=== PATIENT | female | born 1980 | race Caucasian/White ===

== ENCOUNTER 2019-12-28 01:31 | Emergency (ER) | payer SELFPAY ==
[2019-12-28 01:31] VITALS: BP 117/88; PULSE 102; RESP 16; O2SAT 100
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
[2019-12-28] MEDS: succinylcholine 20 mg/mL SDV 10mL 150 MG IVP (01:35)
[2019-12-28] MEDS: fentaNYL 50 mcg/mL INJ 2mL 100 MCG IVP (01:40)
[2019-12-28 01:56] VITALS: BP 124/87; PULSE 99; RESP 20; TEMP 36.1; O2SAT 98; BMI 18.6
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
[2019-12-28 02:01] VITALS: BP 137/93; PULSE 100; RESP 16; O2SAT 100
[2019-12-28 02:04] VITALS: RESP 16
[2019-12-28] MEDS: etomidate 10 ML 10 MG (02:17)
[2019-12-28] MEDS: vecuronium 10 mg SDV IVP (02:18)
[2019-12-28] MEDS: fentaNYL 50 mcg/mL INJ 2mL IVP (02:20)
[2019-12-28] MEDS: succinylcholine 20 mg/mL SDV 10mL 200 MG (02:21)
[2019-12-28] MEDS: propofol 1,000 MG/100 ML INJ 9.4 MG (02:22)
--- NOTE | 2019-12-28 02:23 | PC.NURSE ---
Ems here for fast transfer to [facility] ER. Patients vs stable.
[2019-12-28 02:26] LABS: Alanine Aminotransferase 11 U/L (0-33); Albumin Level 4.9 g/dL (3.5-5.2); Alkaline Phosphatase 43 IU/L (35-105); Anion Gap 24.6 (5-19); Aspartate Amino Transferase 23 U/L (0-32); Blood Urea Nitrogen 11 mg/dL (6-20); Calcium 9.4 mg/dL (8.5-10.5); Carbon Dioxide 16 mmol/L (22-29); Chloride 110 mmol/L (98-107); Globulin 2.8 g/dL (1.3-4.6); Glomerular Filtration Rate 138.1 mL/min (90-130); Glucose 93 mg/dL (65-115); Osmolality Calculated 300 mOsm/kg (285-295); Potassium 3.6 mmol/L (3.5-5.1); Sodium 147 mmol/L (136-145); Total Bilirubin 0.2 mg/dL (0.15-1.2); Total Protein 7.7 g/dL (6.6-8.7)
[2019-12-28 02:27] LABS: Basophils # 0.1 10^3/uL (0.0-0.1); Basophils % 0.4 %; Eosinophils # 0.3 10^3/uL (0.0-0.8); Hematocrit 41.1 % (37.0-47.0); Hemoglobin 13.6 g/dL (11.5-15.3); Lymphocytes # 4.7 10^3/uL (0.8-4.8); Lymphocytes % 28.6 %; Mean Corpuscular HGB Conc 33.1 g/dL (30.0-36.0); Mean Corpuscular Hemoglobin 31.9 pg (28.0-34.0); Mean Corpuscular Volume 96.5 fL (81-99); Monocytes # 1.5 10^3/uL (0.2-0.9); Monocytes % 8.9 %; Neutrophils # 9.7 10^3/uL (1.8-7.7); Neutrophils % 59.3 %; Nucleated Red Blood Cells % 0 %; Platelet Count 259 10^3/cmm (130-400); Red Blood Count 4.26 10^6/uL (4.1-5.3); Red Cell Distribution Width 13.3 % (12.1-15.1); White Blood Count 16.3 10^3/uL (4.0-10.0)
[2019-12-28] MEDS: LORazepam 2 mg/mL INJ 1 mL IVP (02:35)
[2019-12-28 02:36] LABS: HCG, Serum Qual Negative (Negative)
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
[2019-12-28 02:52] VITALS: BP 126/88; PULSE 102; RESP 16; O2SAT 100
[2019-12-28 04:08] LABS: Urine Appearance Clear (CLEAR); Urine Color Straw (Yellow)
[2019-12-28 04:09] LABS: Bilirubin Urine Neg (NEGATIVE); Blood Urine 3+ (Negative); Glucose Urine UA Norm (Normal); Ketones Urine Negative (Negative); Leukocyte Esterase Urine Negative (Negative); Nitrate Urine Negative (Negative); Protein Urine Neg (Negative); Urobilinogen Urine Norm (Negative); pH Urine 5 (5-7)
[2019-12-28 04:34] LABS: Add Urine Culture? No; RBC Urine 0-4 /hpf (0-2); Squamous Epithelial Cell Urine RARE (0-5); WBC Urine RARE /hpf (0-5)
== END 2019-12-28 03:00 | disposition short-term general hospital (02) ==
PROVIDERS: Emergency Provider Emergency Medicine
DX: S27.322A Contusion of lung, bilateral, initial encounter (principal); V89.2XXA Person injured in unspecified motor-vehicle accident, traffic, initial encounter; R41.82 Altered mental status, unspecified
CPT/HCPCS: 12345; 31500; 51702; 71045; 72170; 80053; 81001; 84703; 85025; 86900; 86920; 94002; 94799; 96365; 96375; 99283; 99291; J0330; J2060; J2704; J3010; J3490; Q3014